=== PATIENT | male | born 1995 | race Caucasian/White ===

== ENCOUNTER 2020-05-20 01:53 | Outpatient (CLI) | payer OTHER, SELFPAY ==
[2020-05-20 17:59] LABS: SARS-CoV-2 RNA PCR Negative
== END 2020-05-20 01:54 | disposition home or self-care (01) ==
LOC: ANHCOVIDDT 01:55
PROVIDERS: PCP Internal Medicine; Visit Provider Internal Medicine Gastroenterology
DX: Z01.812 Encounter for preprocedural laboratory examination (principal); Z20.828 Contact with and (suspected) exposure to other viral communicable diseases
CPT/HCPCS: 87635; C9803; U0003

== ENCOUNTER 2020-05-23 01:17 | Day surgery (SDC) | payer OTHER, SELFPAY ==
[2020-05-15 15:05] VITALS: BMI 26.4
[2020-05-23 12:26] VITALS: BP 131/65; PULSE 75; RESP 18; TEMP 36.2; O2SAT 98
[2020-05-23] MEDS: LACTATED RINGERS 1,000 ML 150 ML IV CONT (12:34)
--- NOTE | 2020-05-23 13:55 | WPDANESEPPF ---
Anes - Initial Pre Proc Eval Procedure: Operation Date: 05/23/20 13:00 Proposed Procedures p Esophagogastroduodenoscopy - Armando Kahn MD Date/Time: 05/23/20 13:55 Surgeon: Armando Kahn MD Pre Op Diagnosis: Gerd Patient Data Age: 24 Gender: M Height: 6 ft 1 in Weight: 90.5 kg Last Vital Signs Temp 97.1 F L 05/23/20 12:26 Pulse 75 05/23/20 12:26 Resp 18 05/23/20 12:26 BP 131/65 05/23/20 12:26 Pulse Ox 98 05/23/20 12:26 Allergies Allergy/AdvReac Type Severity Reaction Status Date / Time No Known Allergies Allergy Verified 05/18/20 09:36 Home Medications Medication Instructions Recorded Confirmed Type No Home Medications 05/23/20 05/23/20 History Patient hx anesthesia problems: none Family hx anesthesia problems: none [facility] Past Medical History Medical History (Updated 05/23/20 @ 13:55 by Tomer Escalera MD) Family history of colon cancer in mother GERD (gastroesophageal reflux disease) Social History Social History Smoking status: Current some day smoker Alcohol use details: 3 - 4 A MONTH Substance use: never Living arrangements: with family Gender identity (if verbalized by the patient): Male Spiritual care concerns: No Anes - Eval Final PreProcedure Day of Procedure 05/23/20 13:55 Patient weight: normal Heart: regular rate and rhythm Lungs: clear to auscultation Airway: Mallampati scale class II Neurological: alert and oriented Last oral intake: >/= 8 hours ASA classification: II Emergent: no Anesthetic plan: proceed Anesthesia type and monitoring: general GIVS and standard monitoring Informed Consent: The patient's anesthetic plan and its attendant risks and benefits were discussed with the patient/family/POA. Questions were solicited and answers provided to the satisfaction of the patient/family/POA.
--- NOTE | 2020-05-23 15:30 | WPDHPUPDATE1 ---
History and Physical Update Update Date/Time: 05/23/20 15:30 History and Physical has been reviewed, including an updated exam of the patient. There are NO changes in the patient's condition. Risks, benefits, and alternatives have been discussed and questions answered. Patient agrees to proceed with procedure.
[2020-05-23] MEDS: BENZOCAINE (*SP) 60 ML SPRAY CAN (HURRICAINE) 1 SPRAY MUCOUS MEM (15:34)
[2020-05-23 15:50] VITALS: BP 104/56; PULSE 65; RESP 16; O2SAT 97
[2020-05-23 16:00] VITALS: BP 119/76; PULSE 61; RESP 21; O2SAT 99
[2020-05-23 16:10] VITALS: BP 123/80; PULSE 65; RESP 19; O2SAT 100
== END 2020-05-23 16:15 | disposition home or self-care (01) ==
PROVIDERS: PCP Internal Medicine; Visit Provider Internal Medicine Gastroenterology
PROC: 0DJ08ZZ Inspection of Upper Intestinal Tract, Via Natural or Artificial Opening Endoscopic (ICD-10-PCS; CPT 43235; principal; 2020-05-23 13:00)
DX: K21.00 Gastro-esophageal reflux disease with esophagitis, without bleeding (principal); K44.9 Diaphragmatic hernia without obstruction or gangrene; K29.50 Unspecified chronic gastritis without bleeding; F17.200 Nicotine dependence, unspecified, uncomplicated
CPT/HCPCS: 43239; 87081; 88305; J2704; J7120

== ENCOUNTER → 2021-05-29 02:46 | Outpatient (CLI) | payer OTHER, SELFPAY ==
[2021-05-29 16:22] LABS: SARS-CoV-2 RNA PCR Negative
== END ==
PROVIDERS: PCP Internal Medicine; Visit Provider Internal Medicine
DX: R68.89 Other general symptoms and signs (principal); Z20.822 Contact with and (suspected) exposure to COVID-19
CPT/HCPCS: C9803; U0003; U0005